=== PATIENT | female | born 1955 | race African-American/Black ===

== ENCOUNTER 2017-01-18 20:10 | Emergency (ER) | payer MEDICARE ==
[2017-01-18] MEDS ORDERED: AMOXicillin 250 MG CAP ONE (20:56)
== END 2017-01-18 21:10 | disposition home or self-care (01) ==
LOC: BURERS 20:10
DX: M62.838 Other muscle spasm (principal); K04.7 Periapical abscess without sinus; I10 Essential (primary) hypertension; F32.9 Major depressive disorder, single episode, unspecified; Z79.899 Other long term (current) drug therapy
CPT/HCPCS: 99283